=== PATIENT | male | born 1955 | race Caucasian/White ===

== ENCOUNTER 2021-06-19 00:03 | Emergency (ER) | payer MEDICAID ==
[~2021-06-19] VITALS: Ht 177.8 cm; Wt 86.3 kg
[2021-06-19 00:18] VITALS: BP 186/93
--- NOTE | 2021-06-19 00:37 | NUR ---
PT PRESENTS TO ER FOR ETOH, PT STATES HE WAS DRINKING WITH HIS AND KID AT HOME, CALLED EMS FOR SOME APPARENT REASON THAT PT DOES NOT KNOW OF, PT A/OX3, PT HAS NO COMPLAINTS AT THIS TIME, ALL NEEDS IN REACH, CALL LIGHT IN REACH, NAD AT THIS TIME
--- NOTE | 2021-06-19 01:10 | NUR ---
PT ASLEEP IN BED, VSS, ALL NEEDS IN REACH, NAD AT THIS TIME
--- NOTE | 2021-06-19 02:05 | NUR ---
PT SITTING IN CHAIR AT THE BEDSIDE, ALL NEEDS IN REACH, CALL LIGHT IN REACH, NAD AT THIS TIME, VSS
== END 2021-06-19 03:33 | disposition home or self-care (01) ==
LOC: ED 02:10
DX: F10.120 Alcohol abuse with intoxication, uncomplicated (principal); G31.2 Degeneration of nervous system due to alcohol; Z72.9 Problem related to lifestyle, unspecified; Y90.0 Blood alcohol level of less than 20 mg/100 ml
CPT/HCPCS: 99283